=== PATIENT | female | born 1960 | race Caucasian/White ===

== ENCOUNTER 2022-05-20 23:08 | Emergency (ER) | payer MEDICAID ==
[~2022-05-20] VITALS: Ht 157.5 cm; Wt 127.0 kg
[2022-05-21] MEDS ORDERED: IBUPROFEN 600MG TABLET PO ONE (01:30)
[2022-05-21 01:47] VITALS: BP 120/79
[2022-05-21] MEDS ORDERED: IBUP-2029 MT (02:24)
== END 2022-05-21 02:38 | disposition home or self-care (01) ==
LOC: ER 23:59
DX: R52 Pain, unspecified (principal)
CPT/HCPCS: 73060; 99283